=== PATIENT | female | born 1980 | race Two or more races ===

== ENCOUNTER 2020-12-07 14:41 | Emergency (ER) | payer OTHER ==
[~2020-12-07] VITALS: Ht 152.4 cm; Wt 52.1 kg
[2020-12-07 14:41] VITALS: BP 123/80
--- NOTE | 2020-12-07 15:27 | PHYS DOC ---
Past History Past Medical History: No Pertinent History Past Surgical History: No Surgical History Alcohol Use: None General Adult EDM: Chief Complaint: LOWER EXT PAIN HPI: HPI: Patient is a 39-year-old female coming in for anterior left thigh pain for 2 days. Patient states she got her Covid during the vaccine 3 days ago and had some chills, headache, body aches. Patient states she woke up with the thigh pain and it has not been going away. Is walking with a limp because of it. Denies any injuries. Says the pain radiates to the lateral hip. Review of Systems: Review of Systems: All other systems within normal limits except for as noted in the HPI Allergies: Allergies: Allergies Coded Allergies Type Severity Reaction Last Updated Verified No Known Drug Allergies 12/07/20 No Physical Exam: PE: Constitutional: Well developed, well nourished, no acute distress, non-toxic appearance. [] HENT: Normocephalic, atraumatic, bilateral external ears normal, nose normal. [] Eyes: PERRLA, conjunctiva normal, no discharge. [] Neck: No rigidity, supple, no stridor. [] Cardiovascular: Regular rate and rhythm, brisk cap refill [] Lungs & Thorax: Non labored symmetric respirations, no tachypnea or respiratory distress [] Abdomen: Soft, nondistended. Skin: Warm, dry, no erythema, no rash. [] Back: Unremarkable Extremities: No deformities, range of motion grossly intact, no lower extremity edema. Tenderness with rotation of the hip and flexion. No deformities [] Neurologic: Alert and oriented X 3, no focal deficits noted. [] Psychologic: Affect normal, judgement normal, mood normal. [] Current Patient Data: Vital Signs: Vital Signs Date Time Temp Pulse Resp B/P (MAP) Pulse Ox O2 Delivery O2 Flow Rate FiO2 12/07/20 14:41 98.0 80 18 123/80 (94) 100 Room Air EKG: EKG: [] Radiology/Procedures: Radiology/Procedures: Left femur AP and lateral views, left hip 2 views with one view pelvis. HISTORY: Left hip and leg pain, degenerative vaccine Thursday Left femur AP and lateral views were taken of the left femur. There is not evidence of a fracture or osseous abnormality. Left hip 2 views of one view pelvis Single view was taken of the pelvis. There is no acute pelvic fracture. There is no hip fracture. There is no acute osseous abnormality. IMPRESSION: 1. Negative left femur. 2. No acute fracture or acute osseous abnormality in the pelvis or left hip. [] Heart Score: C/O Chest Pain: No Risk Factors: Risk Factors: DM, Current or recent (<one month) smoker, HTN, HLP, family history of CAD, obesity. Risk Scores: Score 0 - 3: 2.5% MACE over next 6 weeks - Discharge Home Score 4 - 6: 20.3% MACE over next 6 weeks - Admit for Clinical Observation Score 7 - 10: 72.7% MACE over next 6 weeks - Early Invasive Strategies Course & Med Decision Making: Course & Med Decision Making Pertinent Labs and Imaging studies reviewed. (See chart for details) [] Dragon Disclaimer: Dragon Disclaimer: This electronic medical record was generated, in whole or in part, using a voice recognition dictation system. Departure Departure: Impression: Primary Impression: Hypokalemia Additional Impression: Left thigh pain Disposition: HOME / SELF CARE / HOMELESS Referrals: KRISTINA SUMMERS (PCP) Patient Instructions: Hypokalemia-Brief, Muscle Cramps JAMAR PRATT MD Dec 07, 2020 15:27
--- NOTE | 2020-12-07 15:48 | RAD ---
Left femur AP and lateral views, left hip 2 views with one view pelvis. HISTORY: Left hip and leg pain, degenerative vaccine Michelle Left femur AP and lateral views were taken of the left femur. There is not evidence of a fracture or osseous abn ormality. Left hip 2 views of one view pelvis Single view was taken of the pelvis. There is no acute pelvic fracture. There is no hip fracture. The re is no acute osseous abnormality. IMPRESSION: 1. Negative left femur. 2. No acute fracture or acute osseous abnormality in the pelvis or left hip. Electronically signed by: Favio Haynes MD (12/07/2020 3:45 PM) [facility]
[2020-12-07 16:09] LABS: BASO % 1 % (0-3); EOS # 0.2 x10^3/uL (0.0-0.7); EOS % 3 % (0-3); HEMATOCRIT 41.6 % (36.0-47.0); HEMOGLOBIN 13.6 g/dL (12.0-15.5); LYMPH # 2.2 x10^3/uL (1.0-4.8); LYMPH % 28 % (24-48); MEAN CORPUSCULAR HEMOGLOBIN 27 pg (25-35); MEAN CORPUSCULAR HGB CONC 33 g/dL (31-37); MEAN CORPUSCULAR VOLUME 84 fL (79-100); MONO # 0.8 x10^3/uL (0.0-1.1); MONO % 10 % (0-9); NEUT # 4.6 x10^3uL (1.8-7.7); NEUT % 59 % (31-73); PLATELET COUNT 291 x10^3/uL (140-400); RED BLOOD COUNT 4.95 x10^6/uL (3.50-5.40); RED CELL DISTRIBUTION WIDTH 14.1 % (11.5-14.5); WHITE BLOOD COUNT 7.8 x10^3/uL (4.0-11.0)
[2020-12-07 16:15] LABS: CREATININE 0.9 mg/dL (0.6-1.0); GFR 69.3; POTASSIUM 3.4 mmol/L (3.5-5.1)
[2020-12-07 16:22] LABS: ALBUMIN 3.6 g/dL (3.4-5.0); C REACTIVE PROTEIN 3.8 mg/L (0-3.3); TOTAL BILIRUBIN 0.5 mg/dL (0.2-1.0); TOTAL PROTEIN 7.3 g/dL (6.4-8.2)
[2020-12-07] MEDS ORDERED: POTASSIUM CHLORIDE 20 MEQ TABLET.ER. PO ONE (16:45)
== END 2020-12-07 17:25 | disposition home or self-care (01) ==
LOC: ER 14:41
DX: M79.652 Pain in left thigh (principal); E87.6 Hypokalemia; R51.9 Headache, unspecified; M79.10 Myalgia, unspecified site
CPT/HCPCS: 36415; 73502; 73552; 80053; 85025; 86140; 99284